=== PATIENT | male | born 1940 ===

== ENCOUNTER 2018-04-13 10:19 | Day surgery (SDC) | payer OTHER ==
[~2018-04-13] VITALS: Ht 180.3 cm; Wt 80.8 kg
[~2018-04-13 10:19] MED LIST: ALLO100; ALLO100 PO; AMLO5 PO; ANDROGEL75 GM TD; ASPI325 PO; Androgel5 GM; BENZ100A PO; CELE100 PO; Cialis5 MG; DIPATR PO; FURO40 PO; HYDCHL12.5; HYDCHL25; HYDCHL25 PO; LEVFLO500 PO; LISI20 PO; LOSA50 PO; LOSARTAN POTAS100 MG PO; LOSHYD100; METO25ER PO; MULVITMIND PO; NAPR500 PO; OMEP20ER PO; OXYACE5T PO; OXYC15ER PO; Percocet 10-321 EACH PO; Prilosec Otc20 MG; TADA10TA; TEMA15 PO; TRAM50 PO; TRAZ100; TRAZ100 PO; Toprol Xl25 MG PO; Ultram50 MG PO; XARELTO15 MG PO; ZOLP10 PO
[2018-04-13] MEDS ORDERED: TESTOSTERONE5 GM TD (10:51)
[2018-04-13] MEDS ORDERED: CENTRUM SILVER1 EAC1 (10:52)
[2018-04-13] MEDS ORDERED: Cialis5 MG (10:52)
[2018-04-13] MEDS ORDERED: ACET325 (10:52)
[2018-04-13] MEDS ORDERED: OMEGA 3 500 SO1 EACH (10:53)
[2018-04-13] MEDS ORDERED: PROBIOTIC1 EAC1 (10:53)
[2018-04-13] MEDS ORDERED: FINASTERIDE1 MG (10:53)
[2018-04-15] MEDS ORDERED: CELE200 (14:56)
== END 2018-04-13 12:06 | disposition home or self-care (01) ==
LOC: ORSCSDS 10:19
PROVIDERS: Anesthesiology
PROC: 3E0R33Z Introduction of Anti-inflammatory into Spinal Canal, Percutaneous Approach (ICD-10-PCS; principal; 2018-04-13 11:30)
DX: M51.16 Intervertebral disc disorders with radiculopathy, lumbar region (principal); I10 Essential (primary) hypertension; K21.9 Gastro-esophageal reflux disease without esophagitis; Z86.718 Personal history of other venous thrombosis and embolism; Z79.899 Other long term (current) drug therapy
CPT/HCPCS: J1040

== ENCOUNTER → 2019-02-27 | Outpatient (CLI) | payer OTHER ==
[~2019-02-27] MED LIST changes: +ACET325; +CELE200; +CENTRUM SILVER1 EAC1; +FINASTERIDE1 MG; +OMEGA 3 500 SO1 EACH; +PROBIOTIC1 EAC1; +TESTOSTERONE5 GM TD
== END | disposition home or self-care (01) ==
LOC: PLD 13:56 → LAB SHORT 13:56
DX: D48.5 Neoplasm of uncertain behavior of skin (principal)
CPT/HCPCS: 88305

== ENCOUNTER → 2019-09-06 | Outpatient (CLI) | payer OTHER | END | disposition home or self-care (01) | LOC: PLD 07:53 → LAB SHORT 07:53 | DX: D48.5 Neoplasm of uncertain behavior of skin (principal) | CPT/HCPCS: 88305 ==

== ENCOUNTER 2019-11-08 08:02 | Emergency (ER) | payer OTHER ==
[~2019-11-08] VITALS: Ht 180.3 cm; Wt 79.4 kg
[2019-11-08] MEDS ORDERED: Robaxin-750750 MG PO (09:46)
[2019-11-08] MEDS ORDERED: KETO10 PO (09:46)
== END 2019-11-08 09:56 | disposition home or self-care (01) ==
LOC: ER 08:02
DX: G89.29 Other chronic pain (principal); M54.5 Low back pain; I10 Essential (primary) hypertension; Z79.899 Other long term (current) drug therapy; Z87.891 Personal history of nicotine dependence
CPT/HCPCS: 96372; 99283-25; J1885

== ENCOUNTER → 2020-07-24 | Outpatient (CLI) | payer OTHER ==
[~2020-07-24] MED LIST changes: +KETO10 PO; +Robaxin-750750 MG PO
== END | disposition home or self-care (01) ==
LOC: LAB EV 16:00 → LAB SHORT 16:00
DX: R35.0 Frequency of micturition (principal)
CPT/HCPCS: 87086

== ENCOUNTER 2021-04-25 13:39 | Emergency (ER) | payer OTHER | END 2021-04-25 13:56 | disposition left against medical advice (07) | LOC: ER 13:39 | DX: Z53.21 Procedure and treatment not carried out due to patient leaving prior to being seen by health care provider (principal) ==

== ENCOUNTER 2021-07-24 20:01 | Emergency (ER) | payer OTHER ==
[~2021-07-24] VITALS: Ht 180.3 cm; Wt 74.8 kg
[2021-07-24 20:58] LABS: BASOPHILS ABSOLUTE AUTO 0.03 K/mm3 (0.00-0.23); BASOPHILS PERCENT AUTO 1 % (0-2); EOSINOPHILS ABSOLUTE AUTO 0.18 K/mm3 (0.00-0.68); EOSINOPHILS PERCENT AUTO 3 % (0-6); Hematocrit 40.4 % (37.0-53.0); Hemoglobin 14.4 g/dL (13.5-17.5); IMMATURE GRAN ABSOLUTE AUTO 0.04 K/mm3 (0.00-0.10); IMMATURE GRAN PERCENT AUTO 1 % (0-1); LYMPHOCYTES PERCENT AUTO 22 % (21-46); MONOCYTES ABSOLUTE AUTO 0.44 K/mm3 (0.16-1.47); MONOCYTES PERCENT AUTO 8 % (4-13); Mean Corpuscular HGB 32.8 pg (26.0-34.0); Mean Corpuscular HGB Conc 35.6 g/dL (31.5-36.5); Mean Corpuscular Volume 92 fL (80-100); Mean Platelet Volume 8.4 fL (9.1-12.4); NEUTROPHILS ABSOLUTE AUTO 3.88 K/mm3 (1.96-9.15); NEUTROPHILS PERCENT AUTO 66 % (41-73); Platelet Count 148 K/mm3 (150-400); RDW Coefficient Variation 12.8 % (11.7-14.2); RDW Standard Deviation 42.9 fL (35.1-46.3); Red Blood Cell Count 4.39 M/mm3 (4.30-5.90); White Blood Cell Count 5.87 K/mm3 (4.00-11.30)
[2021-07-24] MEDS ORDERED: AMLO5 PO (20:59)
[2021-07-24 21:13] LABS: Albumin, Blood 3.2 g/dL (3.4-5.0); Albumin/Globulin Ratio 0.9 (0.8-1.8); Bilirubin, Total 0.4 mg/dL (0.1-1.0); Bun/Creatinine Ratio 11.5 (12.0-20.0); Calcium, Blood 8.6 mg/dL (8.5-10.1); Creatinine, Blood 1.22 mg/dL (0.60-1.20); Globulin, Blood 3.5 g/dL (2.2-4.0); Potassium, Blood 3.1 mmol/L (3.5-5.5); Total Protein, Blood 6.7 g/dL (6.4-8.2)
[2021-07-24] MEDS ORDERED: CEFD300 PO (22:17)
== END 2021-07-24 22:29 | disposition home or self-care (01) ==
LOC: ER 20:01
PROVIDERS: Physician Assistant
DX: J32.3 Chronic sphenoidal sinusitis (principal); I10 Essential (primary) hypertension; Z79.899 Other long term (current) drug therapy; Z87.891 Personal history of nicotine dependence
CPT/HCPCS: 36415; 70450; 80053; 85025; 93005; 93010; 96374; 96375; 99285-25; A9270

== ENCOUNTER 2022-08-13 13:52 | Emergency (ER) | payer OTHER ==
[~2022-08-13] VITALS: Ht 180.3 cm; Wt 74.8 kg
[~2022-08-13 13:52] MED LIST changes: +CEFD300 PO
[2022-08-13 14:35] LABS: BASOPHILS ABSOLUTE AUTO 0.02 K/mm3 (0.00-0.23); BASOPHILS PERCENT AUTO 0 % (0-2); EOSINOPHILS ABSOLUTE AUTO 0.11 K/mm3 (0.00-0.68); EOSINOPHILS PERCENT AUTO 2 % (0-6); Hematocrit 34.2 % (37.0-53.0); Hemoglobin 12.2 g/dL (13.5-17.5); IMMATURE GRAN ABSOLUTE AUTO 0.01 K/mm3 (0.00-0.10); IMMATURE GRAN PERCENT AUTO 0 % (0-1); LYMPHOCYTES ABSOLUTE AUTO 0.83 K/mm3 (0.84-5.20); LYMPHOCYTES PERCENT AUTO 17 % (21-46); MONOCYTES ABSOLUTE AUTO 0.27 K/mm3 (0.16-1.47); MONOCYTES PERCENT AUTO 5 % (4-13); Mean Corpuscular HGB 33.3 pg (26.0-34.0); Mean Corpuscular HGB Conc 35.7 g/dL (31.5-36.5); Mean Corpuscular Volume 93 fL (80-100); Mean Platelet Volume 8.9 fL (9.1-12.4); NEUTROPHILS ABSOLUTE AUTO 3.73 K/mm3 (1.96-9.15); NEUTROPHILS PERCENT AUTO 75 % (41-73); Platelet Count 111 K/mm3 (150-400); RDW Coefficient Variation 13.2 % (11.7-14.2); RDW Standard Deviation 45.3 fL (35.1-46.3); Red Blood Cell Count 3.66 M/mm3 (4.30-5.90); White Blood Cell Count 4.97 K/mm3 (4.00-11.30)
[2022-08-13 14:53] LABS: Albumin, Blood 3.2 g/dL (3.4-5.0); Albumin/Globulin Ratio 1.1 (0.8-1.8); Bilirubin, Total 0.5 mg/dL (0.1-1.0); Calcium, Blood 8.3 mg/dL (8.5-10.1); Creatinine, Blood 1.2 mg/dL (0.60-1.20); Potassium, Blood 3.7 mmol/L (3.5-5.5); Total Protein, Blood 6.2 g/dL (6.4-8.2)
== END 2022-08-13 19:25 | disposition home or self-care (01) ==
LOC: ER 13:52
PROVIDERS: Physician Assistant
DX: I10 Essential (primary) hypertension (principal); R42 Dizziness and giddiness; H53.9 Unspecified visual disturbance; R31.29 Other microscopic hematuria; Z79.899 Other long term (current) drug therapy; Z87.891 Personal history of nicotine dependence
CPT/HCPCS: 36415; 80053; 81000; 85025; 93005; 93010; A9270

== ENCOUNTER 2022-09-07 04:20 | Emergency (ER) | payer OTHER ==
[~2022-09-07] VITALS: Ht 177.8 cm; Wt 72.6 kg
[2022-09-07 06:30] LABS: Influenza A, PCR NEGATIVE (NEGATIVE); Influenza B, PCR NEGATIVE (NEGATIVE); Resp Syncytial Virus, PCR NEGATIVE (NEGATIVE); SARS-Cov-2 (COVID-19) PCR, MMC NEGATIVE (NEGATIVE)
[2022-09-07 07:48] LABS: BASOPHILS ABSOLUTE AUTO 0.01 K/mm3 (0.00-0.23); BASOPHILS PERCENT AUTO 0 % (0-2); EOSINOPHILS ABSOLUTE AUTO 0.09 K/mm3 (0.00-0.68); EOSINOPHILS PERCENT AUTO 1 % (0-6); Hematocrit 38.1 % (37.0-53.0); Hemoglobin 13.8 g/dL (13.5-17.5); IMMATURE GRAN ABSOLUTE AUTO 0.05 K/mm3 (0.00-0.10); IMMATURE GRAN PERCENT AUTO 1 % (0-1); LYMPHOCYTES PERCENT AUTO 6 % (21-46); MONOCYTES ABSOLUTE AUTO 0.48 K/mm3 (0.16-1.47); MONOCYTES PERCENT AUTO 5 % (4-13); Mean Corpuscular HGB 32.6 pg (26.0-34.0); Mean Corpuscular HGB Conc 36.2 g/dL (31.5-36.5); Mean Corpuscular Volume 90 fL (80-100); Mean Platelet Volume 8.7 fL (9.1-12.4); NEUTROPHILS PERCENT AUTO 88 % (41-73); Platelet Count 123 K/mm3 (150-400); RDW Coefficient Variation 12.4 % (11.7-14.2); RDW Standard Deviation 40.5 fL (35.1-46.3); Red Blood Cell Count 4.23 M/mm3 (4.30-5.90); White Blood Cell Count 10.23 K/mm3 (4.00-11.30)
[2022-09-07 08:07] LABS: Albumin, Blood 3.6 g/dL (3.4-5.0); Bilirubin, Total 0.6 mg/dL (0.1-1.0); Bun/Creatinine Ratio 10.7 (12.0-20.0); Calcium, Blood 8.8 mg/dL (8.5-10.1); Creatinine, Blood 1.12 mg/dL (0.60-1.20); Globulin, Blood 3.7 g/dL (2.2-4.0); Potassium, Blood 3.9 mmol/L (3.5-5.5); Total Protein, Blood 7.3 g/dL (6.4-8.2)
[2022-09-07 09:54] LABS: Source, Urine Straight Cath
[2022-09-07 10:01] LABS: Bilirubin, Urine Neg (Neg); Blood, Urine 1+ (Neg); Glucose Qualitative, Urine Neg (Neg); Ketones, Urine 2+ (Neg); Leukocyte Esterase, Urine 1+ (Neg); Nitrite, Urine Neg (Neg); Protein, Urine 2+ (Neg); Urobilinogen, Urine 3+ (Normal); pH, Urine 6.5 (5.0-8.0)
[2022-09-07 10:19] LABS: Appearance, Urine Clear (Clear); Color, Urine Yellow (P-Yellow)
[2022-09-07 10:26] LABS: Bacteria Mod /hpf; Mucus Light (0-Heavy); Red Blood Cells, Urine 0-2 /hpf (0-2); Squamous Epithelial Cells Few /hpf (Few)
== END 2022-09-07 10:55 | disposition home or self-care (01) ==
LOC: ER 04:20
PROVIDERS: Emergency Medicine; Student in an Organized Health Care Education/Training Program
DX: J06.9 Acute upper respiratory infection, unspecified (principal); I10 Essential (primary) hypertension; Z79.899 Other long term (current) drug therapy; Z87.891 Personal history of nicotine dependence; Z20.822 Contact with and (suspected) exposure to COVID-19
CPT/HCPCS: 0241U; 36415; 80053; 81001; 85025

== ENCOUNTER → 2022-10-15 | Outpatient (CLI) | payer OTHER | END | disposition home or self-care (01) | LOC: LAB SHORT 14:26 → PLD 14:26 | DX: D48.5 Neoplasm of uncertain behavior of skin (principal) | CPT/HCPCS: 88305 ==

== ENCOUNTER → 2024-02-03 | Outpatient (CLI) | payer OTHER ==
[~2024-02-03] MED LIST changes: +COMBIGAN 0.2%-0.5 ML BOTHEARS
[2024-02-03 16:27] LABS: BASOPHILS ABSOLUTE AUTO 0.03 K/mm3 (0.00-0.23); BASOPHILS PERCENT AUTO 1 % (0-2); EOSINOPHILS ABSOLUTE AUTO 0.27 K/mm3 (0.00-0.68); EOSINOPHILS PERCENT AUTO 5 % (0-6); Hematocrit 36.5 % (37.0-53.0); Hemoglobin 13.2 g/dL (13.5-17.5); IMMATURE GRAN ABSOLUTE AUTO 0.02 K/mm3 (0.00-0.10); IMMATURE GRAN PERCENT AUTO 0 % (0-1); LYMPHOCYTES ABSOLUTE AUTO 1.07 K/mm3 (0.84-5.20); LYMPHOCYTES PERCENT AUTO 22 % (21-46); MONOCYTES ABSOLUTE AUTO 0.45 K/mm3 (0.16-1.47); MONOCYTES PERCENT AUTO 9 % (4-13); Mean Corpuscular HGB 33.8 pg (26.0-34.0); Mean Corpuscular HGB Conc 36.2 g/dL (31.5-36.5); Mean Corpuscular Volume 94 fL (80-100); Mean Platelet Volume 8.7 fL (9.1-12.4); NEUTROPHILS ABSOLUTE AUTO 3.13 K/mm3 (1.96-9.15); NEUTROPHILS PERCENT AUTO 63 % (41-73); Platelet Count 110 K/mm3 (150-400); RDW Coefficient Variation 12.8 % (11.7-14.2); RDW Standard Deviation 43.8 fL (35.1-46.3); White Blood Cell Count 4.97 K/mm3 (4.00-11.30)
[2024-02-03 16:49] LABS: Bun/Creatinine Ratio 15.7 (12.0-20.0); Calcium, Blood 8.3 mg/dL (8.5-10.1); Creatinine, Blood 1.08 mg/dL (0.60-1.20); Potassium, Blood 3.8 mmol/L (3.5-5.5); Thyroid Stimulating Hormone 1.234 uIU/mL (0.360-4.800)
== END ==
LOC: LAB 16:10 → LAB SHORT 16:10
PROVIDERS: Physician Assistant Surgical
DX: I95.9 Hypotension, unspecified (principal); R53.83 Other fatigue
CPT/HCPCS: 80048; 84443; 84484; 85025; 85379

== ENCOUNTER → 2025-08-22 | Outpatient (CLI) | payer OTHER ==
[~2025-08-22] MED LIST changes: +ALBU90OI INH; +AMLODIPINE BES2.5 MG PO; +ATORVASTATIN CA20 MG PO; +Aspir 8181 MG PO; +B-12 COMPL1000 MCG/2 IM; +BRIMONIDINE TART5 M2 BOTHEYES; -COMBIGAN 0.2%-0.5 ML BOTHEARS; +DEPO-TESTO200 MG/1 M IM; +HYDROCODONE-AC1 EA10 PO; +HYDROCODONE-AC1 EAC7 PO; +LATA.005SO BOTHEYES; +LOPE2C PO; +ONDA4ODT MM; +PROM25 PO; +Phenergan25 M1 PO; +TADALAFIL5 M1 PO; +TAMSULOSIN HCL0.4 M1 PO; +TIMO.5OPSO BOTHEYES
[2025-08-24 15:45] LABS: Campylobacter Sp Not Detected (NOT DETECT); Salmonella Sp Not Detected (NOT DETECT); Vibrio Sp Not Detected (NOT DETECT)
[2025-08-24 15:46] LABS: E. Coli O157 Not Detected (NOT DETECT); Enteroaggregative E. coli-EAEC Not Detected (NOT DETECT); Enteropathogenic E. coli-EPEC Not Detected (NOT DETECT); Enterotoxigenic E. coli-ETEC Not Detected (NOT DETECT); Shiga Toxin-prod E. coli-STEC Not Detected (NOT DETECT); Shigella/Enteroin E. coli-EIEC Not Detected (NOT DETECT)
== END ==
LOC: LAB SHORT 21:45 → LAB 21:45
PROVIDERS: Family Medicine
DX: R19.7 Diarrhea, unspecified (principal)
CPT/HCPCS: 87507

== ENCOUNTER 2025-08-27 12:32 | Observation (INO) | payer OTHER ==
[~2025-08-27] VITALS: Wt 67.9 kg
[~2025-08-27 12:32] MED LIST changes: -ALBU90OI INH; -B-12 COMPL1000 MCG/2 IM; -HYDROCODONE-AC1 EAC7 PO; -TADALAFIL5 M1 PO; -TIMO.5OPSO BOTHEYES
[2025-08-27 12:53] VITALS: BP 179/89
[2025-08-27] MEDS ORDERED: TADALAFIL5 M1 PO (13:21)
[2025-08-27] MEDS ORDERED: NS 1,000 ML IV SCH (13:35)
[2025-08-27] MEDS ORDERED: Ondansetron HCl 2 MG / ML 2ML Vial IV PRN (13:35)
[2025-08-27] MEDS ORDERED: FLU VACC TS2025(65UP)/MF59C/PF 45 MCG/0.5 ML SYRINGE IM SCH (13:40)
[2025-08-27 14:00] LABS: BASOPHILS ABSOLUTE AUTO 0.01 K/mm3 (0.00-0.23); BASOPHILS PERCENT AUTO 0 % (0-2); EOSINOPHILS ABSOLUTE AUTO 0.07 K/mm3 (0.00-0.68); EOSINOPHILS PERCENT AUTO 1 % (0-6); Hematocrit 35.0 % (37.0-53.0); Hemoglobin 12.1 g/dL (13.5-17.5); IMMATURE GRAN ABSOLUTE AUTO 0.02 K/mm3 (0.00-0.10); IMMATURE GRAN PERCENT AUTO 0 % (0-1); LYMPHOCYTES ABSOLUTE AUTO 0.68 K/mm3 (0.84-5.20); LYMPHOCYTES PERCENT AUTO 12 % (21-46); MONOCYTES ABSOLUTE AUTO 0.28 K/mm3 (0.16-1.47); MONOCYTES PERCENT AUTO 5 % (4-13); Mean Corpuscular HGB Conc 34.6 g/dL (31.5-36.5); Mean Corpuscular Volume 98 fL (80-100); NEUTROPHILS ABSOLUTE AUTO 4.55 K/mm3 (1.96-9.15); NEUTROPHILS PERCENT AUTO 81 % (41-73); NRBC ABSOLUTE 0.00 K/mm3 (0.00-0.02); NRBC Auto 0.0 /100 WBC (0.0-0.2); Platelet Count 90 K/mm3 (150-400); RDW Coefficient Variation 13.9 % (11.7-14.2); RDW Standard Deviation 50.0 fL (35.1-46.3)
[2025-08-27 14:27] LABS: Alanine Aminotransfer (ALT/SGP 19.0 U/L (12-78); Albumin, Blood 3.1 g/dL (3.4-5.0); Albumin/Globulin Ratio 1.2 (0.8-1.8); Anion Gap 7.0 mmol/L (3-11); Aspartate Aminotrans (AST/SGOT 18.0 U/L (12-37); Bilirubin, Total 0.8 mg/dL (0.1-1.0); Blood Urea Nitrogen 27.0 mg/dL (8-24); CO2, Blood 31.0 mmol/L (21-32); Calcium, Blood 8.4 mg/dL (8.5-10.1); Chloride, Blood 103.0 mmol/L (98-108); Creatinine, Blood 1.22 mg/dL (0.60-1.20); Globulin, Blood 2.5 g/dL (2.2-4.0); Glucose, Blood 98.0 mg/dL (70-99); Magnesium, Blood 1.4 mg/dL (1.6-2.4); Phosphorus, Blood 2.7 mg/dL (2.5-4.9); Potassium, Blood 3.9 mmol/L (3.5-5.5); Sodium, Blood 137.0 mmol/L (136-145); Total Protein, Blood 5.6 g/dL (6.4-8.2)
[2025-08-27 15:20] VITALS: BP 161/83
[2025-08-27] MEDS ORDERED: HYDROcodone 10-APAP 325 TAB PO PRN (15:35)
--- NOTE | 2025-08-27 18:28 | NUR ---
ASSUMED CARE OF DIRECT ADMIT. PT ARRIVED A/O, VSS WAS ABLE TO AMB WITH CANE, PT USES WALKER AT HOME. AT BEDSIDE. ATTEMPTED TO IMPUT PT MEDICCATION BUT COMPUTER FROSE AND I HAVE NOT BEEN ABLE TO PLACE MEDICATIONS IN. MD NOTIFIED, DR CONNOLLY STATED HE WOULD FIX IT. IV STARTED TO LEFT FA AND INFUSING NS AT 100. LABS DRAWN. PT COMPLAINING OF CHRONIC BACK PAIN AND WAS MEDICATED PER MAR
[2025-08-27 19:26] VITALS: BP 138/79
--- NOTE | 2025-08-28 03:38 | NUR ---
PARACHUTE TAPER SUMMARY VSS. A/O X 4. ADMIT DX ALEJANDRA. IVF OF NS INFUSING AT 100 ML/HR. ANALGESICS ADMIN FOR CHRONIC BACK PAIN - SEE MAR FOR DETAILS. UP WITH OBSERVATION. SHIFT STARTED WITH SOME PT AGITATION, BUT AFTER HE RECEIVED ANALGESICS, SEEMED MORE COOPERATIVE. HAS BEEN RESTING QUIETLY WITH FEW INTERRUPTIONS. CALL LIGHT IN REACH, RAILS UP X 2 AND BED IN LOW POSITION FOR SAFETY. WILL CONT TO MONITOR.
[2025-08-28 05:26] VITALS: BP 157/69
[2025-08-28 07:00] LABS: BASOPHILS ABSOLUTE AUTO 0.01 K/mm3 (0.00-0.23); BASOPHILS PERCENT AUTO 0 % (0-2); EOSINOPHILS ABSOLUTE AUTO 0.10 K/mm3 (0.00-0.68); EOSINOPHILS PERCENT AUTO 2 % (0-6); Hematocrit 35.9 % (37.0-53.0); Hemoglobin 12.4 g/dL (13.5-17.5); IMMATURE GRAN ABSOLUTE AUTO 0.02 K/mm3 (0.00-0.10); IMMATURE GRAN PERCENT AUTO 0 % (0-1); LYMPHOCYTES ABSOLUTE AUTO 0.86 K/mm3 (0.84-5.20); LYMPHOCYTES PERCENT AUTO 18 % (21-46); MONOCYTES ABSOLUTE AUTO 0.25 K/mm3 (0.16-1.47); MONOCYTES PERCENT AUTO 5 % (4-13); Mean Corpuscular HGB Conc 34.5 g/dL (31.5-36.5); Mean Corpuscular Volume 98 fL (80-100); NEUTROPHILS ABSOLUTE AUTO 3.68 K/mm3 (1.96-9.15); NEUTROPHILS PERCENT AUTO 75 % (41-73); NRBC ABSOLUTE 0.00 K/mm3 (0.00-0.02); NRBC Auto 0.0 /100 WBC (0.0-0.2); Platelet Count 97 K/mm3 (150-400); RDW Coefficient Variation 13.8 % (11.7-14.2); RDW Standard Deviation 49.5 fL (35.1-46.3)
[2025-08-28 07:10] VITALS: BP 163/73
[2025-08-28 07:26] LABS: Alanine Aminotransfer (ALT/SGP 18.0 U/L (12-78); Albumin, Blood 2.8 g/dL (3.4-5.0); Albumin/Globulin Ratio 1.1 (0.8-1.8); Anion Gap 5.0 mmol/L (3-11); Aspartate Aminotrans (AST/SGOT 15.0 U/L (12-37); Bilirubin, Total 0.7 mg/dL (0.1-1.0); Blood Urea Nitrogen 23.0 mg/dL (8-24); CO2, Blood 31.0 mmol/L (21-32); Calcium, Blood 8.4 mg/dL (8.5-10.1); Chloride, Blood 104.0 mmol/L (98-108); Creatinine, Blood 1.09 mg/dL (0.60-1.20); Globulin, Blood 2.6 g/dL (2.2-4.0); Glucose, Blood 98.0 mg/dL (70-99); Magnesium, Blood 1.4 mg/dL (1.6-2.4); Potassium, Blood 4.0 mmol/L (3.5-5.5); Sodium, Blood 136.0 mmol/L (136-145); Total Protein, Blood 5.4 g/dL (6.4-8.2)
[2025-08-28] MEDS ORDERED: Enoxaparin 30 MG/0.3 ML SYR SC SCH (09:00)
[2025-08-28 10:16] VITALS: BP 132/68
[2025-08-28] MEDS ORDERED: HYDCHL25 PO (11:03)
[2025-08-28] MEDS ORDERED: ALBU90OI INH (11:07)
[2025-08-28] MEDS ORDERED: HYDROCODONE-AC1 EAC7 PO (11:13)
[2025-08-28] MEDS ORDERED: TIMO.5OPSO BOTHEYES (11:28)
[2025-08-28] MEDS ORDERED: B-12 COMPL1000 MCG/2 IM (13:18)
[2025-08-28] MEDS ORDERED: LOPE2C PO (14:36)
--- NOTE | 2025-08-28 15:14 | NUR ---
DISCHARGE SUMMARY PT EDUCATED ON DISCHARGE PACKET AND INSTRUCTIONS. NO NEW PRESCRIPTIONS. MD ONLY STOPPED ONE HOME MED. PT EDUCATED ON ACUTE KIDNEY INJURY. NO IV TO REMOVE AT TIME OF DISCHARGE WAS ALREADY DC'D THIS AM. TAKEN DOWN VIA WHEELCHAIR BY RN. PICKED UP. NO NEW QUESTIONS OR CONERNS PRIOR TO DC.
== END 2025-08-28 15:10 | disposition home or self-care (01) ==
LOC: MEDS 12:32 → ENPENDDIS 08-28 11:39 → MEDS 08-28 15:10
PROVIDERS: ADMIT Hospitalist
DX: N17.9 Acute kidney failure, unspecified (principal); N40.0 Benign prostatic hyperplasia without lower urinary tract symptoms; G47.00 Insomnia, unspecified; I25.10 Atherosclerotic heart disease of native coronary artery without angina pectoris; J44.9 Chronic obstructive pulmonary disease, unspecified; J84.10 Pulmonary fibrosis, unspecified; I11.0 Hypertensive heart disease with heart failure; I50.30 Unspecified diastolic (congestive) heart failure; E78.5 Hyperlipidemia, unspecified; G89.4 Chronic pain syndrome; Z87.891 Personal history of nicotine dependence; Z79.899 Other long term (current) drug therapy; Z90.49 Acquired absence of other specified parts of digestive tract; Z90.3 Acquired absence of stomach [part of]
CPT/HCPCS: 36415; 80053; 83735; 84100; 85025; A9270; G0378; J1650; J7030